=== PATIENT | male | born 1955 | race Caucasian/White ===

== ENCOUNTER 2016-12-31 06:36 | Day surgery (SDC) | payer BC ==
[2016-12-31] MEDS ORDERED: Lactated Ringers 1,000 ML IV SCH (07:00)
[2016-12-31] MEDS ORDERED: fentaNYL 100 MCG/2 ML SDV ONE (07:13)
[2016-12-31] MEDS ORDERED: Propofol 200 MG/20 ML SDV ONE (07:13)
[2016-12-31] MEDS ORDERED: Midazolam 1 MG/ML 2 ML SDV ONE (07:13)
--- NOTE | 2016-12-31 08:34 | OR ---
DATE OF PROCEDURE: 12/31/2016 PREOPERATIVE DIAGNOSIS: Personal history of colon polyps, strong family history of colon cancer--father had colon cancer. POSTOPERATIVE DIAGNOSIS: Small transverse colon polyp, personal history of colon polyps, strong family history of colon cancer--father had colon cancer. PROCEDURE PERFORMED: Colonoscopy to the cecum with biopsy resection of small transverse colon polyp. SURGEON: Chaz Wolff MD. ANESTHESIA: IV anesthesia with monitored anesthesia care. INDICATION: This 61-year-old white male is referred for a colonoscopy. His last colonoscopic exam he says was done two years ago. He says his father had colon cancer and three years ago he had a colon polyp. I counseled him for a colonoscopy with possible biopsy and/or polypectomy including risks and alternatives, and he gave his informed consent to proceed. DESCRIPTION OF PROCEDURE: The patient was placed in the left lateral decubitus position. IV anesthesia was administered by the Anesthesia Service. Time-out was held. A rectal exam was performed, which was unremarkable. The flexible video Olympus colonoscope was introduced through his anus, up his rectum, and out his colon all the way to the cecum. Once the cecum was reached, the scope was slowly withdrawn, examining the mucosa throughout. No mucosal abnormalities were noted until we reached the transverse colon. Here, a small polyp was seen, this was removed with a few bites of the biopsy forceps. The scope was withdrawn further with no other lesions noted. The scope was retroflexed in the rectum with the distal rectum appearing unremarkable. The scope was straightened and removed. He tolerated the procedure well. Chaz Wolff MD /[id number]
== END 2016-12-31 09:15 | disposition home or self-care (01) ==
LOC: JP.SDS 06:36
PROVIDERS: ATTEND Surgery
DX: Z12.11 Encounter for screening for malignant neoplasm of colon (principal); D12.3 Benign neoplasm of transverse colon; I10 Essential (primary) hypertension; E78.00 Pure hypercholesterolemia, unspecified; F32.9 Major depressive disorder, single episode, unspecified; Z86.010 Personal history of colon polyps; Z80.0 Family history of malignant neoplasm of digestive organs; Z93.3 Colostomy status
CPT/HCPCS: 45380; 88305; J2250; J2704; J3010; J7120

== ENCOUNTER 2020-08-20 07:34 | Day surgery (SDC) | payer BC ==
[2020-08-20] MEDS ORDERED: Sodium Chloride 0.9% 1,000 ML IV SCH (08:30)
[2020-08-20] MEDS ORDERED: Propofol 200 MG/20 ML SDV ONE (08:51)
[2020-08-20] MEDS ORDERED: Midazolam 1 MG/ML 2 ML SDV ONE (08:52)
[2020-08-20] MEDS ORDERED: fentaNYL 100 MCG/2 ML SDV ONE (08:52)
--- NOTE | 2020-08-20 13:26 | OR ---
DATE OF PROCEDURE: 08/20/2020 SURGEON: Liu Pop MD PROCEDURE: Colonoscopy. FINDINGS: Descending colon polyp, approximately 5 mm, completely removed using cold biopsy forceps. COMPLICATIONS: None. CLOUD ENGINEER: None. ANESTHESIA: MAC. PREOPERATIVE DIAGNOSIS: Family history of colorectal cancer. POSTOPERATIVE DIAGNOSIS: Family history of colorectal cancer. RISKS: Risks, benefits, alternatives, and limitations including but not limited to infection, bleeding, perforation, and false positives and false negatives were explained to the patient who wished to proceed. PROCEDURE IN DETAIL: The patient was placed in left lateral decubitus position. Digital rectal exam was performed without abnormality. Scope was introduced and advanced atraumatically to the ileocecal valve. The scope was brought back to the ascending, transverse, and descending colon and retroflexed. The aforementioned polyps were identified and completely removed. No old or new blood. No masses. No abnormalities on retroflexion. Greater than 8 minutes was spent removing the scope. The prep was acceptable, approximately 90% of luminal surface could be seen. The patient tolerated the procedure well. Liu Pop MD /[id number]
== END 2020-08-20 10:44 | disposition home or self-care (01) ==
LOC: JP.SDS 07:34
PROVIDERS: ATTEND Surgery
DX: Z12.11 Encounter for screening for malignant neoplasm of colon (principal); D12.4 Benign neoplasm of descending colon; I10 Essential (primary) hypertension; Z80.0 Family history of malignant neoplasm of digestive organs
CPT/HCPCS: 45380; J2250; J2704; J3010; J7030; 88305

== ENCOUNTER 2020-11-11 15:38 | Emergency (ER) | payer BC ==
[2020-11-11] MEDS ORDERED: Bacitracin Oint 1 GM U/D Packet TOP ONE (15:42)
--- NOTE | 2020-11-11 16:28 | EDM.PDOC ---
ED HPI GENERAL MEDICAL PROBLEM - General Chief Complaint: Skin Complaint Stated Complaint: FISH HOOK LEFT HAND AREA Time Seen by Provider: 11/11/20 15:41 Source of Information: Reports: Patient, RN Notes Reviewed History Limitations: Reports: No Limitations - History of Present Illness INITIAL COMMENTS - FREE TEXT/NARRATIVE: 65-year-old gentleman presents emergency department day with a fishhook to his left hand no other complaints - Related Data Allergies Allergy/AdvReac Type Severity Reaction Status Date / Time No Known Allergies Allergy Verified 08/20/20 08:10 Home Meds: Home Meds Aspirin [Halfprin] 81 mg PO DAILY 12/29/16 [History] atenoloL [Atenolol] 50 mg PO DAILY 12/29/16 [History] Citalopram Hydrobromide [Celexa] 10 mg PO DAILY 08/15/20 [History] Past Medical History Cardiovascular History: Reports: High Cholesterol, Hypertension Gastrointestinal History: Reports: Colon Polyp Genitourinary History: Reports: None Other Genitourinary History: Hpogonadism in male Musculoskeletal History: Reports: None Neurological History: Reports: Migraines Psychiatric History: Reports: Anxiety, Depression - Infectious Disease History Infectious Disease History: Reports: Chicken Pox, Measles, Mumps - Past Surgical History Head Surgeries/Procedures: Reports: None Cardiovascular Surgical History: Reports: None GI Surgical History: Reports: Colostomy Male Surgical History: Reports: None Neurological Surgical History: Reports: None Musculoskeletal Surgical History: Reports: Arthroscopic Knee Dermatological Surgical History: Reports: None Social & Family History - Family History Family Medical History: No Pertinent Family History - Tobacco Use Tobacco Use Status *Q: Never Tobacco User - Caffeine Use Caffeine Use: Reports: Coffee - Recreational Drug Use Recreational Drug Use: No ED ROS GENERAL - Review of Systems Review Of Systems: See Below Skin: Reports: Wound ED EXAM, SKIN/RASH Exam: See Below Text/Narrative:: Single leann fishhook left hand, after adequate anesthesia with lidocaine locally it was removed with the fisherman's technique Exam Limited By: No Limitations General Appearance: Alert, WD/WN, No Apparent Distress Course - Vital Signs Last Recorded V/S: Last Vital Signs Temp 97.3 F 11/11/20 16:02 Pulse 65 11/11/20 16:02 Resp 16 11/11/20 16:02 BP 134/80 11/11/20 16:02 Pulse Ox 97 11/11/20 16:02 - Orders/Labs/Meds Meds: Medications Discontinued Medications Generic Name Dose Route Start Last Admin Trade Name Beatrice PRN Reason Stop Dose Admin Bacitracin 1 dose 11/11/20 15:42 11/11/20 16:13 Bacitracin Oint 1 Gm U/D Packet TOP 11/11/20 15:43 1 dose ONETIME ONE Administration Lidocaine HCl 5 ml 11/11/20 15:42 11/11/20 16:13 Lidocaine 1% 5 Ml Sdv INJECT 11/11/20 15:43 5 ml ONETIME ONE Administration Departure - Departure Time of Disposition: 16:27 Disposition: Home, Self-Care 01 Condition: Fair Clinical Impression: Fish hook injury of left hand Qualifiers: Encounter type: initial encounter Qualified Code(s): S69.92XA - Unspecified injury of left wrist, hand and finger(s), initial encounter - Discharge Information Referrals: Alexander Staton MD [Primary Care Provider] - Additional Instructions: Follow-up with primary care as needed Sepsis Event Note (ED) - Evaluation Sepsis Screening Result: No Definite Risk - Focused Exam Vital Signs: Vital Signs Temp Pulse Resp BP Pulse Ox 11/11/20 16:02 97.3 F 65 16 134/80 97 11/11/20 15:51 97.3 F 65 16 134/80 97 - Assessment/Plan Plan: Assessment Acuity = acute Site and laterality = fishhook left hand Etiology = [place] within [place] Manifestations = none Location of injury = Home Lab values = none Plan Follow-up primary care as needed, tetanus 2017 This note was dictated using [employer] voice recognition software please call with any questions on syntax or grammar.
== END 2020-11-11 16:35 | disposition home or self-care (01) ==
LOC: JP.ED 15:38
DX: S60.552A Superficial foreign body of left hand, initial encounter (principal); I10 Essential (primary) hypertension; Z79.82 Long term (current) use of aspirin; Z79.899 Other long term (current) drug therapy; W45.8XXA Other foreign body or object entering through skin, initial encounter
CPT/HCPCS: 99283

== ENCOUNTER 2021-03-24 10:43 | Emergency (ER) | payer BC, MEDICARE ==
[2021-03-24 11:50] LABS: CORONAVIRUS COVID-19 NAA POSITIVE (NEGATIVE)
== END 2021-03-24 12:16 | disposition home or self-care (01) ==
LOC: JP.ED 10:43
DX: U07.1 COVID-19 (principal); J02.8 Acute pharyngitis due to other specified organisms; E78.00 Pure hypercholesterolemia, unspecified; I10 Essential (primary) hypertension; Z79.82 Long term (current) use of aspirin
CPT/HCPCS: 0241U; 99282; 99283